=== PATIENT | male | born 1955 | race Hispanic/Latino ===

== ENCOUNTER 2020-06-10 15:05 | Emergency (ER) | payer BC ==
[2020-06-10] MEDS ORDERED: Lidocaine 1% PF 5 ML VIAL ONE (18:11)
== END 2020-06-10 19:06 | disposition home or self-care (01) ==
LOC: ERS 15:05
DX: S61.211A Laceration without foreign body of left index finger without damage to nail, initial encounter (principal); I10 Essential (primary) hypertension; E11.9 Type 2 diabetes mellitus without complications; Z79.4 Long term (current) use of insulin; Y29.XXXA Contact with blunt object, undetermined intent, initial encounter
CPT/HCPCS: 12002

== ENCOUNTER 2020-06-25 14:25 | Emergency (ER) | payer BC, OTHER | END 2020-06-25 15:54 | disposition home or self-care (01) | LOC: ERS 14:25 | DX: L03.019 Cellulitis of unspecified finger (principal); I10 Essential (primary) hypertension; E11.9 Type 2 diabetes mellitus without complications | CPT/HCPCS: 99283 ==